=== PATIENT | male | born 1970 | race Caucasian/White ===

== ENCOUNTER 2017-04-10 04:27 | Emergency (ER) | payer SELFPAY ==
[~2017-04-10 04:27] MED LIST: CEPH500C3 PO
[2017-04-10 04:32] VITALS: BP 150/90; PULSE 80; RESP 18; TEMP 98.9; O2SAT 97
[2017-04-10 04:36] VITALS: BP 150/90; PULSE 80; RESP 18; TEMP 98.9; O2SAT 97
[2017-04-10] MEDS ORDERED: HYDR-3533 PO (04:49)
[2017-04-10] MEDS ORDERED: DICL75TA PO (04:49)
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
== END 2017-04-10 05:09 | disposition home or self-care (01) ==
LOC: NEPD 04:27
DX: S42.032A Displaced fracture of lateral end of left clavicle, initial encounter for closed fracture (principal); V18.0XXA Pedal cycle driver injured in noncollision transport accident in nontraffic accident, initial encounter; Y93.55 Activity, bike riding; Z72.0 Tobacco use
CPT/HCPCS: 73030; 99284